=== PATIENT | male | born 1945 | race Caucasian/White ===

== ENCOUNTER 2016-05-12 06:31 | Day surgery (SDC) | payer MEDICARE, OTHER ==
[~2016-05-12] VITALS: Ht 182.9 cm; Wt 86.2 kg
[~2016-05-12 06:31] MED LIST: ASPIRIN LOW DOS81 M1 PO; ATORVASTATIN CA40 MG PO; AUGMENTIN875TAB OR; BOOSTRIX IM; CIALIS2.5 MG PO; CLOPIDOGREL75 MG PO; HYDROCO/APAP1 T10 PO; LEVAQUIN500 MG OR; LISINOPRIL10 MG PO; LOVASTATIN40 M1 PO; LYRICA75 MG OR; LYRICA75 MG PO; METO50TA52 PO; NIASPAN500 MG OR; PLAVIX75 MG PO; PROTONIX40 M2 OR; PROTONIX40 M2 PO; TRAMADOL HCL50 MG PO
[2016-05-12 07:59] VITALS: BP 122/67
== END 2016-05-12 08:58 | disposition home or self-care (01) ==
LOC: ORM 06:31
PROVIDERS: ATTEND Anesthesiology Pain Medicine
PROC: 3E0T33Z Introduction of Anti-inflammatory into Peripheral Nerves and Plexi, Percutaneous Approach (ICD-10-PCS; principal; 2016-05-12)
PROC: 3E0T3BZ Introduction of Anesthetic Agent into Peripheral Nerves and Plexi, Percutaneous Approach (ICD-10-PCS; 2016-05-12)
DX: M48.06 Spinal stenosis, lumbar region (principal); M12.9 Arthropathy, unspecified; M54.5 Low back pain

== ENCOUNTER 2016-05-26 06:57 | Day surgery (SDC) | payer MEDICARE, OTHER ==
[~2016-05-26] VITALS: Ht 182.9 cm; Wt 86.2 kg
[2016-05-26] MEDS ORDERED: DURAGESIC12 ( TD (10:03)
[2016-05-26 10:56] VITALS: BP 109/55
== END 2016-05-26 10:15 | disposition home or self-care (01) ==
LOC: ORM 06:57
PROVIDERS: ATTEND Anesthesiology Pain Medicine
PROC: 3E0T33Z Introduction of Anti-inflammatory into Peripheral Nerves and Plexi, Percutaneous Approach (ICD-10-PCS; principal; 2016-05-26)
PROC: 3E0T3BZ Introduction of Anesthetic Agent into Peripheral Nerves and Plexi, Percutaneous Approach (ICD-10-PCS; 2016-05-26)
DX: M54.5 Low back pain (principal); M48.06 Spinal stenosis, lumbar region; M12.9 Arthropathy, unspecified

== ENCOUNTER 2017-04-19 12:51 | Emergency (ER) | payer MEDICARE, OTHER ==
[~2017-04-19] VITALS: Ht 182.9 cm; Wt 88.0 kg
[~2017-04-19 12:51] MED LIST changes: +DURAGESIC12 ( TD; +EXCEDRI3 PO; +FENTANYL25 MCG/HR TD; +LIPITOR40 M1 PO
[2017-04-19] MEDS ORDERED: LOSARTAN POT50 MG PO (13:06)
[2017-04-19 13:49] LABS: HEMATOCRIT 46.8 % (39.0-50.0); HEMOGLOBIN 15.4 g/dl (14.0-18.0); IMMATURE GRANULOCYTES 0.5 % (0.0-1.0); MEAN CELL VOLUME 91.4 fL CALC (80.0-100.0); MEAN CORPUSCULAR HGB 30.1 pG CALC (26.0-32.0); MEAN CORPUSCULAR HGB CONC 32.9 g/L CALC (32.0-36.0); NEUT# 4.39 thou/uL (1.82-7.42); RED BLOOD COUNT 5.12 mill/uL (4.70-6.10); RED CELL DISTRI WIDTH 13.1 % (11.5-15.5)
[2017-04-19 14:09] LABS: ALBUMIN 4.1 g/dL (3.2-5.0); ALKALINE PHOSPHATASE 77 u/l (38-126); ANION GAP 15 (6-22 (CALC)); BILIRUBIN, TOTAL 0.7 mg/dL (0.0-1.4); BUN 19 mg/dL (8-23); BUN/CREATININE RATIO 15 (12-20 (CALC)); CARBON DIOXIDE 27 mmol/l (22-30); CHLORIDE 106 mmol/l (95-108); CREATININE 1.2 mg/dL (0.7-1.3); GFR 60 ML/MIN (>=60 (CALC)); GFR FOR AFR.AMER. > 60 ML/MIN (>=60 (CALC)); POTASSIUM 4.5 mmol/l (3.5-5.1); SGOT/AST 25 u/l (19-48); SGPT/ALT 23 u/l (11-66); SODIUM 144 mmol/l (137-146); TOTAL PROTEIN 6.6 g/dL (6.3-8.2)
[2017-04-19 15:38] VITALS: BP 146/76
== END 2017-04-19 15:38 | disposition short-term general hospital (02) ==
LOC: ED 12:51
PROVIDERS: Emergency Medicine
DX: I26.99 Other pulmonary embolism without acute cor pulmonale (principal); I82.431 Acute embolism and thrombosis of right popliteal vein; Z79.02 Long term (current) use of antithrombotics/antiplatelets

== ENCOUNTER → 2018-04-14 | Outpatient (REF) | payer MEDICARE, OTHER ==
[~2018-04-14] MED LIST changes: +CRESTOR40 MG PO; +ELIQUIS2.5 MG; +LOSARTAN POT100 MG PO; +LOSARTAN POT50 MG PO; +SINGULAIR10 MG PO; +ZANAFLEX4 MG PO
== END | disposition home or self-care (01) ==
LOC: ULTRASND 10:18
PROVIDERS: ATTEND Surgery Vascular Surgery
DX: I71.4 Abdominal aortic aneurysm, without rupture (principal); Z91.81 History of falling; I72.4 Aneurysm of artery of lower extremity

== ENCOUNTER → 2018-04-19 | Outpatient (REF) | payer MEDICARE, OTHER ==
[~2018-04-19] VITALS: Ht 182.9 cm; Wt 88.5 kg
[2018-04-19 16:54] VITALS: BP 122/81
== END | disposition home or self-care (01) ==
LOC: ORM 10:15 → PO 10:24
PROVIDERS: ATTEND Surgery
DX: Z01.818 Encounter for other preprocedural examination (principal); R19.5 Other fecal abnormalities; Z86.79 Personal history of other diseases of the circulatory system; Z86.711 Personal history of pulmonary embolism; K21.9 Gastro-esophageal reflux disease without esophagitis; Z91.09 Other allergy status, other than to drugs and biological substances; E78.00 Pure hypercholesterolemia, unspecified; I25.10 Atherosclerotic heart disease of native coronary artery without angina pectoris; Z95.818 Presence of other cardiac implants and grafts; Z90.49 Acquired absence of other specified parts of digestive tract; M72.0 Palmar fascial fibromatosis [Dupuytren]; Z98.52 Vasectomy status; Z98.890 Other specified postprocedural states

== ENCOUNTER 2018-04-26 06:31 | Day surgery (SDC) | payer MEDICARE, OTHER ==
[2018-04-26 09:00] VITALS: BP 106/63
== END 2018-04-26 09:31 | disposition home or self-care (01) ==
LOC: ENDO 06:31 → ORM 12:00
PROVIDERS: ATTEND Surgery
PROC: 0DBH8ZX Excision of Cecum, Via Natural or Artificial Opening Endoscopic, Diagnostic (ICD-10-PCS; principal; 2018-04-26)
DX: D12.0 Benign neoplasm of cecum (principal); K57.30 Diverticulosis of large intestine without perforation or abscess without bleeding; Z90.49 Acquired absence of other specified parts of digestive tract; Z86.711 Personal history of pulmonary embolism; Z79.01 Long term (current) use of anticoagulants

== ENCOUNTER 2022-04-14 08:57 | Day surgery (SDC) | payer MEDICARE, OTHER ==
[~2022-04-14] VITALS: Ht 182.9 cm; Wt 83.0 kg
[~2022-04-14 08:57] MED LIST changes: +LORTAB 1010 MG PO; +MAGNESIUM400 MG PO; +NEURONTIN300 MG PO; +NORCO1 TA2 PO
[2022-04-14 12:24] VITALS: BP 156/89
== END 2022-04-14 11:15 | disposition home or self-care (01) ==
LOC: ORM 08:57
PROVIDERS: ATTEND Physical Medicine & Rehabilitation Pain Medicine
DX: M47.816 Spondylosis without myelopathy or radiculopathy, lumbar region (principal); G89.4 Chronic pain syndrome; M48.062 Spinal stenosis, lumbar region with neurogenic claudication; M79.2 Neuralgia and neuritis, unspecified

== ENCOUNTER 2022-04-28 07:37 | Day surgery (SDC) | payer MEDICARE, OTHER ==
[~2022-04-28] VITALS: Ht 182.9 cm; Wt 81.6 kg
[2022-04-28 11:00] VITALS: BP 146/88
== END 2022-04-28 11:04 | disposition home or self-care (01) ==
LOC: ORM 07:37
PROVIDERS: ATTEND Physical Medicine & Rehabilitation Pain Medicine
DX: M47.816 Spondylosis without myelopathy or radiculopathy, lumbar region (principal)

== ENCOUNTER 2023-11-08 09:02 | Emergency (ER) | payer MEDICARE, OTHER ==
[2023-11-08] VITALS (10 sets, daily range): BP systolic 104–128; BP diastolic 69–93
[~2023-11-08] VITALS: Ht 182.9 cm; Wt 80.0 kg
[2023-11-08 09:40] LABS: BASO% 0.2 % (0-3); EOS% 2.5 % (0-8); HEMATOCRIT 45.5 % (39.0-50.0); HEMOGLOBIN 14.4 g/dl (14.0-18.0); IMMATURE GRANULOCYTES 0.2 % (0.0-5.0); LYMPH% 11.7 % (15-41); MEAN CELL VOLUME 91.7 fL CALC (80.0-100.0); MEAN CORPUSCULAR HGB CONC 31.6 g/dL CAL (32.0-36.0); MONO% 6.4 % (2-13); NEUT# 8.84 thou/uL (1.82-7.42); RED BLOOD COUNT 4.96 mill/uL (4.70-6.10); RED CELL DISTRI WIDTH 13.3 % (11.5-15.5)
[2023-11-08 09:52] LABS: ALBUMIN 4.4 g/dL (3.2-5.0); ALKALINE PHOSPHATASE 87 u/l (38-126); ANION GAP 9 (6-22 (CALC)); BILIRUBIN, TOTAL 0.9 mg/dL (0.2-1.3); BUN 21 mg/dL (8-23); BUN/CREATININE RATIO 18 (12-20 (CALC)); CARBON DIOXIDE 32 mmol/l (22-30); CHLORIDE 106 mmol/l (95-108); CREATININE 1.2 mg/dL (0.7-1.3); ESTIMATED GFR 62 ML/MIN (>=90 (CALC)); LIPASE 69 u/l (23-300); POTASSIUM 4.1 mmol/l (3.5-5.1); SGOT/AST 35 u/l (19-48); SODIUM 143 mmol/l (137-146); TOTAL PROTEIN 7.5 g/dL (6.3-8.2)
[2023-11-08 10:13] LABS: URINE BILIRUBIN - DIPSTICK Negative (NEGATIVE); URINE BLOOD DIPSTICK Small (NEGATIVE); URINE GLUCOSE - DIPSTICK Negative (NEGATIVE); URINE KETONE Negative (NEGATIVE); URINE LEUK ESTERASE Negative (NEGATIVE); URINE NITRITE - DIPSTICK Negative (Negative); URINE PROTEIN - DIPSTICK Trace mg/dL (NEG-TRACE); URINE UROBILINOGEN - DIPSTICK 0.2 E.U./dL (0.2)
[2023-11-08 10:19] LABS: URINE COLOR Yellow
[2023-11-08 10:22] LABS: URINE EPITHELIAL CELLS RARE EPI/hpf (0-FEW); URINE RBC 0-2 RBC/hpf (0-5)
[2023-11-08] MEDS ORDERED: OMEPRAZOLE DR20 MG PO (12:04)
== END 2023-11-08 12:17 | disposition home or self-care (01) ==
LOC: ED 09:02
PROVIDERS: Family Medicine
DX: R10.13 Epigastric pain (principal); I10 Essential (primary) hypertension; I71.40 Abdominal aortic aneurysm, without rupture, unspecified; Z95.5 Presence of coronary angioplasty implant and graft; R11.0 Nausea